=== PATIENT | female | born 1925 | race Caucasian/White ===

== ENCOUNTER 2016-08-28 09:25 | Inpatient (IN) | payer MEDICARE ==
--- NOTE | ~2016-08-28 | DS ---
Discharge Summary [id number] [place]. [address] NAME: HEIDE SOTO : [birth year] STATUS : DIS IN PAT#: [id number] AGE: 89 ADM/REG DATE : 08/28/16 MR#: [id number] REPORT SERV DATE: 09/01/16 DICTATED BY: DATE: REPORT STATUS : Draft TRANSCRIBED BY: MODL DATE: 08/31/16 ADMISSION DATE: 08/28/2016 DISCHARGE DATE: 08/31/2016 DISCHARGE DIAGNOSES: 1. Strep pharyngitis. 2. Recurrent UTIs. 3. Hypothyroidism. 4. Toxic encephalopathy. 5. Anemia. 6. History of lung nodule. 7. Possible pneumonia. CONSULTING PHYSICIANS: None. DISCHARGE MEDICATIONS: 1. Augmentin 875 mg p.o. b.i.d. x7 more days. 2. Aspirin 81 mg p.o. daily. 3. Cosopt ophthalmic solution 1 drop b.i.d. both eyes. 4. Doxycycline 100 mg p.o. b.i.d. x7 days. 5. Estradiol 0.01% q. 7 days. 6. Lumigan 0.01% ophthalmic drops, 1 drop in left eye at bedtime. 7. Synthroid 75 mcg p.o. daily Saturday through Saturday, Synthroid 112.5 mcg p.o. Sundays. 8. Cozaar 100 mg p.o. daily. 9. Melatonin 5 mg p.o. at bedtime. 10.Evista 60 mg p.o. daily. 11.Klonopin 0.5 mg p.o. at bedtime. 12.Advil 200 mg p.o. daily p.r.n. for pain. 13.Benefiber 1 dose p.o. every morning. 14.Pepcid 20 mg p.o. daily p.r.n. for indigestion. 15.Gas-X 80 mg p.o. daily p.r.n. for indigestion. 16.Multivitamin p.o. daily. 17.[place]-3 fatty acids 2000 mg p.o. daily. 18.Probiotic one tablet p.o. daily. For full H and P, please refer to Dr. Renee Graff' dictation on 08/28/2016. IMAGING: Includes a portable chest x-ray, which demonstrated stable aortic atherosclerosis and pulmonary venous congestion, but no acute infiltrate was noted. CT of the chest without contrast as well as a CT of the abdomen and pelvis with contrast was performed, and the CT of the chest with minimal tree in bud infiltrates and upper lobes of both lungs was noted likely infectious inflammatory, but it was very similar to her prior exam 1 month ago. She has a stable 2 x 5 mm noncalcified right upper lobe pulmonary nodule. A 4 mm noncalcified right middle lobe pulmonary nodule and a partially calcified 3 x 6 mm subpleural nodule in the left upper lobe. The patient will follow up the CT scan of the chest in 12 months for further evaluation as an outpatient. She also had trace bilateral pleural effusions. A CT of the abdomen showed colonic diverticulosis without evidence of acute diverticulitis, which Discharge Summary [address] [place]. [address] NAME: HEIDE SOTO : [birth year] STATUS : DIS IN PAT#: [id number] AGE: 89 ADM/REG DATE : 08/28/16 MR#: [id number] REPORT SERV DATE: 09/01/16 DICTATED BY: DATE: REPORT STATUS : Draft TRANSCRIBED BY: MODL DATE: 08/31/16 showed moderate to large amount of stool in the rectosigmoid region, moderate stool in the descending colon; however, no impaction was noted. She has stable compression fractures at T9 and L1, shows a small hiatal hernia. HOSPITAL COURSE/PROBLEM LIST: 1. Strep pharyngitis and possible pneumonia as noted above in the CT scan there was tree- in-bud infiltrates; however, this was present [address] scan, at that time, it is not clear if the patient actually had a small amount of pneumonia or not; however, were treating accordingly. The patient did have a positive strep throat as well, this is why we were treating this as well. She also had a positive MRSA nasal swab. So, I will discharge the patient on doxycycline and Augmentin p.o., for 7 more days and have her follow up with her primary care provider, if she does not improve, continue to improve or if she worsens. She is instructed to come back to the hospital. The patient also has a history of recurrent UTIs with MSSA, as well as E coli. The above-mentioned antibiotic should cover these bacteria. 2. Hypothyroidism, the patient's TSH was elevated at 5.3, however the free T4 was normal at 1.07. I will continue her current regimen and have her follow up with her primary care provider for further management of this. 3. Toxic encephalopathy. This is resolved since admission. Within 24 hours of admission. 4. History of anemia, the patient's H and H is stable at 10.8 and 33.2. She will follow up with her primary care provider for further monitoring of this. 5. Multiple lung nodules. This is known to the patient she has had these on her CT scans before and she will continue to follow up with CT scans in the future for further monitoring. MYLENE/MODL Glenn Heath NP / [id number] CC: MD Sherrie Jaquez M.D.
--- NOTE | ~2016-08-28 | HP ---
History And Physical [id number] [facility] [place]. [address] NAME: HEIDE SOTO : [birth year] STATUS : ADM IN [facility]#: [id number] AGE: 89 ADM/REG DATE : 08/28/16 MR#: [id number] REPORT SERV DATE: 08/28/16 DICTATED BY: TAMMIE GRAFF DATE: 08/28/16 REPORT STATUS : Draft TRANSCRIBED BY: MODL DATE: 08/28/16 DATE OF ADMISSION: 08/28/2016 CHIEF COMPLAINT: Fever. HISTORY OF PRESENT ILLNESS: The patient is a very pleasant 89-year-old white female, who is well known to the Hospitalist Service. She was actually last here on in June 2016. At that time, she was admitted with toxic encephalopathy secondary to pneumonia and sepsis secondary to pneumonia. There was concern of a right lower lobe mass, for which she had a followup CT in four weeks. This area has actually improved and it did look like she probably had a pneumonic process. Today, she comes in after having about 48 hours of fever and just not behaving as her usual self. She has been a bit confused, but this is not unusual when she has an infection of any sort. She has not had a headache or any neck pain. She denies abdominal pain, denies chest pain. Her daughter denies that she has had a new cough. She has not complained of any dysuria to her daughter. The only complaint she has had is nausea. Her daughter has not noticed any skin changes. She actually showered her yesterday and looked at all of her mother and did not really notice anything unusual. She went to Dr. Ackerman yesterday for a routine followup for a pessary change, had the pessary changed, had a UA dipstick done and at that time, was told she had a UTI and started on Macrobid. She has only taken two doses since yesterday. She has been exposed to Strep in some grandchildren she was recently exposed to and other than that, there was really no other real specific complaints that she can identify. PAST MEDICAL HISTORY: 1. Recurrent urinary tract infections with previous history of MSSA. 2. Hypothyroidism. 3. Hypertension. 4. Previous pneumonia. 5. Iron deficiency anemia. 6. Glaucoma. 7. Mixed connective tissue disorder. 8. Raynaud's. 9. Pulmonary nodules with negative bronch. 10.Mediastinal lymphadenopathy. 11.COPD. 12.GERD. 13.Urinary incontinence. 14.Pelvic floor weakness. SURGICAL HISTORY: 1. She has had a left retina repair. 2. I and D of the finger, sphenoid surgery, left parotid tumor resection, and a cystoscopy. ALLERGIES: CODEINE AND SULFA. History And Physical [address] [address] NAME: HEIDE SOTO : [birth year] STATUS : ADM IN [facility]#: [id number] AGE: 89 ADM/REG DATE : 08/28/16 MR#: [id number] REPORT SERV DATE: 08/28/16 DICTATED BY: TAMMIE GRAFF DATE: 08/28/16 REPORT STATUS : Draft TRANSCRIBED BY: AYLA DATE: 08/28/16 SOCIAL HISTORY: She smoked for about fifteen to eighteen years, quit many years ago. She does not drink alcohol. She lives with a daughter. FAMILY HISTORY: Positive for mother also had recurrent urinary tract infection. She had a father with heart disease and her brother had lung cancer and COPD. HOME MEDICATIONS: Reviewed and attached. REVIEW OF SYSTEMS: Full ten-point review of systems obtained. Pertinent positives already mentioned in the HPI. PHYSICAL EXAMINATION: VITAL SIGNS: BP 131/56, sats 95%. Temp 99.0. However, she has a difficult time cooperating with a temperature, pulse is 104, respiratory rate is 20. GENERAL: Well-developed, elderly white female, thin and frail HEENT: Normocephalic, atraumatic. Throat is clear. I did examine her posterior pharynx. It was not apparently red. Her face does have a flushed appearance and some redness, which is left greater than right, but it does not appear to be cellulitic. NECK: Supple. HEART: Regular rate and rhythm. LUNGS: Grossly clear, but diminished at the bases. ABDOMEN: Soft, nontender, nondistended. She has positive bowel sounds. EXTREMITIES: Warm and dry. I did roll her over, I examined her skin, and I did not appreciate any evidence of cellulitis. NEURO: She is alert. She is oriented to person and place, but not time and her speech is appropriate. Her mouth is dry, which makes speaking a bit difficult, but she has symmetrical strength and tone in all four extremities. LABORATORY AND X-RAY: CBC: White count is 29,000, H and H 11.5 and 35, and platelets are 258. Coags are normal. Basic metabolic panel is essentially normal. Albumin is 2.7. LFTs are normal. Troponin is negative at 0.02. Lactate is 1.5. Urinalysis shows only one whites. Chest x-ray is essentially negative. ASSESSMENT/PLAN: 1. Fever with leukocytosis to 29,000. The only symptom is nausea fairly [place] [id number] and normal urine and no evidence of pneumonia on chest x-ray, I think we need to look further. Given her advanced age, certainly she could have some occult infection that we have missed. She does not have headache or nuchal signs; I doubt that she has a meningitis. I would like however given that she has had some nausea and she had a previous pneumonia, to go and scan her chest, abdomen, and pelvis to make sure we are not missing an infection. We will culture her blood and urine. We will scan her chest, abdomen, and pelvis. We will check a procalcitonin. We will place her empirically on Zosyn and Vanc until we have a clear source. Also, we are going to do a rapid Strep screen and a flu swab on her since she does have a fever. 2. History of recurrent urinary tract infections. Her urinalysis looks fairly bland History And Physical [address] [address] NAME: HEIDE SOTO : [birth year] STATUS : ADM IN [facility]#: [id number] AGE: 89 ADM/REG DATE : 08/28/16 MR#: [id number] REPORT SERV DATE: 08/28/16 DICTATED BY: TAMMIE GRAFF DATE: 08/28/16 REPORT STATUS : Draft TRANSCRIBED BY: MODL DATE: 08/28/16 today. We will follow up her urine culture from Dr. Ackerman. I have requested those results. 3. History of hypothyroidism. 4. History of anemia, stable. 5. History of connective tissue disorder, stable. 6. History of recent pneumonia in June. Follow-up CT looks like it was improving. She is going to get another CT today. 7. Deep venous thrombosis prophylaxis with subcutaneous Lovenox. 8. Toxic encephalopathy likely secondary to ongoing infection. We will try to identify the source. 9. Disposition, pending above. LEFTY/MODL Tammie Graff M.D. / [id number] CC: MD Sherrie Wing M.D.
[~2016-08-28 09:25] MED LIST: ACET500CAP PO; ACTONEL35 MG PO; ADVIL PO; ASAB PO; AUG875 PO; CALTRA600D PO; CALTRAT600 PO; CEFT5 PO; CENTRUM PO; CENTRUM TAB1 TAB PO; COQ-1010 MG PO; COSOPT OPH; COZAAR100 MG PO; CYANO1000T PO; DORZOL/TIMOL1 ML OPH; ESTRACE VAGIN42.5 GM V; EVISTA60 PO; FISH OIL PO; FISH-EPA1000 MG PO; FOLIC ACID PO; GLUCCHONDR PO; GLUCOSAMINE SULFATE PO; HALF81 PO; KLONO5 PO; LUMIGAN2.5 ML OPH; MACROBID PO; MCZ25 PO; MELATONIN5 M1 PO; METAMUCIL CAN7 OZ PO; METANX PO; METPAKSF PO; MIRALAXPKT PO; MULTIVIT/MIN PO; MULTIVITAMI1 PO; MULTIVITAMIN CHEW PO; NEUR300 PO; OMNICEF300 PO; P1 PO; PEP10 PO; PRAV10 PO; PROBIOTIC PO; SENOKOTS PO; SEPTRA DS1 TAB PO; SYN075 PO; T PO; VIB50 PO; [UNRECOGNIZED DRUG - OTHER]; [UNRECOGNIZED DRUG - OTHER] PO
[2016-08-28 09:37] LABS: ASCORBIC ACID (UR NOT ORDER) NEG (NEG); BILIRUBIN, URINE NEGATIVE (NEG); ER URINALYSIS TAT 0 Hrs 00 Mins; KETONE, URINE NEGATIVE (NEG); LEUKOCYTE ESTERASE(NOT OR NEG (NEG); WBC (NOT ORDERED) (RFLEX) 1 (0-5)
[2016-08-28 09:38] LABS: NITRITE (URINE) POS (NEG)
[2016-08-28 09:53] LABS: BASOPHILS 0.1 %; BASOPHILS ABSOLUTE 0.02 10/3/uL (0.0-0.16); EOSINOPHILS 0 %; EOSINOPHILS ABSOLUTE 0.01 10/3/uL (0.0-0.53); HEMOGLOBIN 11.5 g/dL (12.0-16.0); IMMATURE GRANULOCYTES 0.5 %; LYMPHOCYTES ABSOLUTE 0.88 10/3/uL (0.67-4.30); MEAN CORPUS HGB CONC 32.9 g/dL (32.0-36.0); MEAN CORPUSCULAR HEMOGLOB 28.5 pg (26.0-34.0); MEAN CORPUSCULAR VOLUME 86.6 fL (80-100); MEAN PLATELET VOLUME 10.2 fL (9.2-13.0); MONOCYTES 3.3 %; MONOCYTES ABSOLUTE 0.97 10/3/uL (0.21-1.20); NEUTROPHILS 93.1 %; NEUTROPHILS ABSOLUTE 27.32 10/3/uL (2.02-8.40); PLATELET COUNT 258 10/3/uL (150-400); RBC DISTRIBUTION WIDTH 14.5 % (12.0-16.0); RED CELL COUNT 4.04 10/6/uL (4.0-5.6)
[2016-08-28 09:58] LABS: ER CBC TAT 0 Hrs 09 Mins; WHITE BLOOD CELLS 29.3 10/3/uL (4.5-10.5)
[2016-08-28 09:59] LABS: IMMATURE GRANULOCYTES ABSOLUTE 0.14 10/3/uL (0.0-0.11); MANUAL DIFF NO %
[2016-08-28 10:00] LABS: INTERNATIONAL NORMAL RATI 1.1 UNITS (-); PROTIME (NOT ORD) 13.6 SEC (12.0-14.5)
[2016-08-28 10:13] LABS: A/G RATIO 0.7 (0.7-1.9); ALKALINE PHOSPHATASE 73 U/L (45-117); BUN (BLOOD UREA NITROGEN) 15 MG/DL (6-23); CALCIUM, SERUM 7.4 MG/DL (8.5-10.4); CHLORIDE, SERUM 104 MMOL/L (96-112); CO2 (CARBON DIOXIDE) 23 MMOL/L (24-34); CREATININE 0.79 MG/DL (0.55-1.02); GFR AFRICAN AMERICAN 77 ML/MIN (>=60); GFR NON AFRICAN AMERICAN 66 ML/MIN (>=60); GLOBULIN 3.8 G/DL (2.5-4.1); GLUCOSE, SERUM 81 MG/DL (60-99); POTASSIUM, SERUM 3.8 MMOL/L (3.5-5.3); SGOT(AST) 21 U/L (5-40); SGPT(ALT) 22 U/L (5-65); SODIUM, SERUM 137 MMOL/L (135-148); TOTAL BILIRUBIN 0.7 MG/DL (0-1.2); TOTAL PROTEIN 6.5 G/DL (6.0-8.5); TROPONIN I <0.02 NG/ML (<0.05)
[2016-08-28 10:14] LABS: ALBUMIN 2.7 G/DL (3.5-5.0)
[2016-08-28 10:15] LABS: ER DIFF TAT 0 Hrs 26 Mins; LYMPHOCYTES 3 %; LYMPHOCYTES ABSOLUTE (CALC) 0.88 10/3/uL (0.67-4.30); MONOCYTES 3 %; MONOCYTES ABSOLUTE (CALC) 0.88 10/3/uL (0.21-1.20); NEUTROPHILS ABSOLUTE (CALC) 27.54 10/3/uL (2.02-8.40); SEGMENTED NEUTROPHIL (0) 94 %; TOTAL NUCLEATED CELLS 100
[2016-08-28 10:16] LABS: PLATELET ESTIMATE ADQ (ADEQUATE); RBC MORPHOLOGY NORM (NORMAL)
[2016-08-28] MEDS ORDERED: ASAB PO (10:29)
[2016-08-28] MEDS ORDERED: COSOPT OPH (10:30)
[2016-08-28] MEDS ORDERED: EVISTA60 PO (10:30)
[2016-08-28] MEDS ORDERED: COZAAR100 MG PO (10:31)
[2016-08-28] MEDS ORDERED: LUMIGAN2.5 ML OPH (10:31)
[2016-08-28] MEDS ORDERED: MELATONIN5 M1 PO (10:31)
[2016-08-28] MEDS ORDERED: KLONO5 PO (10:32)
[2016-08-28] MEDS ORDERED: BENEFIBER OTC PO (10:32)
[2016-08-28] MEDS ORDERED: ESTRACE VAGIN42.5 GM V (10:32)
[2016-08-28] MEDS ORDERED: MACROBID PO ×2 (10:32→10:39)
[2016-08-28] MEDS ORDERED: ADVIL PO (10:34)
[2016-08-28] MEDS ORDERED: GAS-X80 MG PO (10:35)
[2016-08-28] MEDS ORDERED: PEP20 PO (10:35)
[2016-08-28] MEDS ORDERED: M VIT PO (10:39)
[2016-08-28] MEDS ORDERED: PROBIOTIC PO (10:40)
[2016-08-28] MEDS ORDERED: OMEGA PO (10:40)
[2016-08-28 15:03] LABS: FERRITIN 86 NG/ML (8-252); IRON BINDING CAPACITY 234 MCG/DL (225-410); IRON, SERUM 12 MCG/DL (35-150)
[2016-08-28 15:52] LABS: PROCALCITONIN 0.49 ng/mL (<0.5)
[2016-08-28 19:56] LABS: INFLUENZA A SCREEN NEGATIVE (NEGATIVE); INFLUENZA B SCREEN NEGATIVE (NEGATIVE)
[2016-08-29 05:55] LABS: HEMOGLOBIN 9.8 g/dL (12.0-16.0); MEAN CORPUS HGB CONC 33.6 g/dL (32.0-36.0); MEAN CORPUSCULAR HEMOGLOB 29.6 pg (26.0-34.0); MEAN CORPUSCULAR VOLUME 88.2 fL (80-100); PLATELET COUNT 196 10/3/uL (150-400); RBC DISTRIBUTION WIDTH 14.9 % (12.0-16.0); RED CELL COUNT 3.31 10/6/uL (4.0-5.6)
[2016-08-29 05:57] LABS: HEMATOCRIT 29.2 % (36.0-48.0); MANUAL DIFF YES %; WHITE BLOOD CELLS 14.1 10/3/uL (4.5-10.5)
[2016-08-29 06:00] LABS: BUN (BLOOD UREA NITROGEN) 13 MG/DL (6-23); CALCIUM, SERUM 7.2 MG/DL (8.5-10.4); CHLORIDE, SERUM 110 MMOL/L (96-112); CO2 (CARBON DIOXIDE) 20 MMOL/L (24-34); CREATININE 0.85 MG/DL (0.55-1.02); GFR AFRICAN AMERICAN 70 ML/MIN (>=60); GFR NON AFRICAN AMERICAN 61 ML/MIN (>=60); GLUCOSE, SERUM 71 MG/DL (60-99); POTASSIUM, SERUM 3.6 MMOL/L (3.5-5.3); SODIUM, SERUM 140 MMOL/L (135-148)
[2016-08-29 06:21] LABS: BAND NEUTROPHILS 2 %; LYMPHOCYTES 6 %; LYMPHOCYTES ABSOLUTE (CALC) 0.85 10/3/uL (0.67-4.30); MONOCYTES 3 %; MONOCYTES ABSOLUTE (CALC) 0.42 10/3/uL (0.21-1.20); NEUTROPHILS ABSOLUTE (CALC) 12.83 10/3/uL (2.02-8.40); SEGMENTED NEUTROPHIL (0) 89 %; TOTAL NUCLEATED CELLS 100
[2016-08-29 06:22] LABS: OVALOCYTES 1+ (3-10/OIF) (0-2/OIF); POIKILOCYTOSIS 1+ (5-10/OIF) (0-5/OIF)
[2016-08-30 05:01] LABS: BASOPHILS 0.2 %; BASOPHILS ABSOLUTE 0.01 10/3/uL (0.0-0.16); EOSINOPHILS 5.9 %; EOSINOPHILS ABSOLUTE 0.36 10/3/uL (0.0-0.53); HEMOGLOBIN 9.8 g/dL (12.0-16.0); IMMATURE GRANULOCYTES 0.2 %; IMMATURE GRANULOCYTES ABSOLUTE 0.01 10/3/uL (0.0-0.11); LYMPHOCYTES 21.4 %; LYMPHOCYTES ABSOLUTE 1.31 10/3/uL (0.67-4.30); MEAN CORPUS HGB CONC 32.7 g/dL (32.0-36.0); MEAN CORPUSCULAR HEMOGLOB 29.2 pg (26.0-34.0); MEAN CORPUSCULAR VOLUME 89.3 fL (80-100); MEAN PLATELET VOLUME 10.3 fL (9.2-13.0); MONOCYTES 8.6 %; MONOCYTES ABSOLUTE 0.53 10/3/uL (0.21-1.20); NEUTROPHILS 63.7 %; NEUTROPHILS ABSOLUTE 3.91 10/3/uL (2.02-8.40); PLATELET COUNT 216 10/3/uL (150-400); RBC DISTRIBUTION WIDTH 15.2 % (12.0-16.0); RED CELL COUNT 3.36 10/6/uL (4.0-5.6)
[2016-08-30 05:03] LABS: MANUAL DIFF NO %; WHITE BLOOD CELLS 6.1 10/3/uL (4.5-10.5)
[2016-08-30 05:19] LABS: BUN (BLOOD UREA NITROGEN) 13 MG/DL (6-23); CALCIUM, SERUM 7.4 MG/DL (8.5-10.4); CHLORIDE, SERUM 108 MMOL/L (96-112); CO2 (CARBON DIOXIDE) 22 MMOL/L (24-34); CREATININE 0.94 MG/DL (0.55-1.02); FREE T4 1.07 NG/DL (0.76-1.46); GFR AFRICAN AMERICAN 62 ML/MIN (>=60); GFR NON AFRICAN AMERICAN 54 ML/MIN (>=60); POTASSIUM, SERUM 3.8 MMOL/L (3.5-5.3); SODIUM, SERUM 139 MMOL/L (135-148)
[2016-08-30 05:20] LABS: GLUCOSE, SERUM 102 MG/DL (60-99)
[2016-08-31 06:34] LABS: BASOPHILS 0.2 %; BASOPHILS ABSOLUTE 0.01 10/3/uL (0.0-0.16); EOSINOPHILS ABSOLUTE 0.43 10/3/uL (0.0-0.53); HEMOGLOBIN 10.8 g/dL (12.0-16.0); IMMATURE GRANULOCYTES 0.2 %; IMMATURE GRANULOCYTES ABSOLUTE 0.01 10/3/uL (0.0-0.11); LYMPHOCYTES 32.4 %; LYMPHOCYTES ABSOLUTE 1.75 10/3/uL (0.67-4.30); MEAN CORPUS HGB CONC 32.5 g/dL (32.0-36.0); MEAN CORPUSCULAR HEMOGLOB 28.9 pg (26.0-34.0); MEAN CORPUSCULAR VOLUME 88.8 fL (80-100); MEAN PLATELET VOLUME 10.3 fL (9.2-13.0); MONOCYTES 11.5 %; MONOCYTES ABSOLUTE 0.62 10/3/uL (0.21-1.20); NEUTROPHILS 47.7 %; NEUTROPHILS ABSOLUTE 2.58 10/3/uL (2.02-8.40); PLATELET COUNT 232 10/3/uL (150-400); RED CELL COUNT 3.74 10/6/uL (4.0-5.6); WHITE BLOOD CELLS 5.4 10/3/uL (4.5-10.5)
[2016-08-31 06:43] LABS: HEMATOCRIT 33.2 % (36.0-48.0); MANUAL DIFF NO %
[2016-08-31 06:57] LABS: CHLORIDE, SERUM 106 MMOL/L (96-112); CO2 (CARBON DIOXIDE) 25 MMOL/L (24-34); CREATININE 0.74 MG/DL (0.55-1.02); GFR AFRICAN AMERICAN 83 ML/MIN (>=60); GFR NON AFRICAN AMERICAN 72 ML/MIN (>=60); GLUCOSE, SERUM 82 MG/DL (60-99); POTASSIUM, SERUM 3.8 MMOL/L (3.5-5.3); SODIUM, SERUM 139 MMOL/L (135-148)
[2016-08-31 07:01] LABS: BUN (BLOOD UREA NITROGEN) 9 MG/DL (6-23)
[2016-08-31] MEDS ORDERED: AUG875 PO (09:35)
[2016-08-31] MEDS ORDERED: VIBRATAB100 MG PO (09:36)
[2016-12-13] MEDS ORDERED: COZAAR100 MG PO (19:29)
[2016-12-13] MEDS ORDERED: COSOPT OPH (19:29)
[2016-12-13] MEDS ORDERED: GLUCOSAMINEPO PO (19:29)
[2016-12-13] MEDS ORDERED: LUMIGAN2.5 ML OPH (19:29)
[2016-12-13] MEDS ORDERED: ASAB PO (19:30)
[2016-12-13] MEDS ORDERED: ACET500CAP PO (19:30)
[2016-12-13] MEDS ORDERED: PROMEGA PO (19:31)
[2016-12-13] MEDS ORDERED: MULTIVIT/MIN PO (19:31)
[2016-12-13] MEDS ORDERED: METPAKSF PO (19:31)
[2016-12-13] MEDS ORDERED: MELATONIN5 M1 PO (19:31)
[2016-12-13] MEDS ORDERED: KLONO5 PO (19:32)
[2016-12-13] MEDS ORDERED: PROBIOTIC OTC PO (19:32)
[2016-12-13] MEDS ORDERED: SYN075 PO (19:32)
[2016-12-13] MEDS ORDERED: EVISTA60 PO (19:32)
[2016-12-20] MEDS ORDERED: FLORASTOR250 MG PO (15:48)
[2016-12-20] MEDS ORDERED: VANCOCIN HCL125 MG PO (15:49)
== END 2016-08-31 13:14 | disposition home or self-care (01) | DRG 871 ==
LOC: ER 09:25 → 4SO 11:40
PROVIDERS: Emergency Medicine; Internal Medicine; Nurse Practitioner Acute Care; Surgery
DX: A40.8 Other streptococcal sepsis (principal); J15.4 Pneumonia due to other streptococci; G92 Toxic encephalopathy; N39.0 Urinary tract infection, site not specified; J02.0 Streptococcal pharyngitis; B95.62 Methicillin resistant Staphylococcus aureus infection as the cause of diseases classified elsewhere; E03.9 Hypothyroidism, unspecified; D64.9 Anemia, unspecified; R91.8 Other nonspecific abnormal finding of lung field; I10 Essential (primary) hypertension; D50.9 Iron deficiency anemia, unspecified; H40.9 Unspecified glaucoma; I73.00 Raynaud's syndrome without gangrene; R59.1 Generalized enlarged lymph nodes; K21.9 Gastro-esophageal reflux disease without esophagitis; J44.9 Chronic obstructive pulmonary disease, unspecified; Z88.2 Allergy status to sulfonamides; Z88.5 Allergy status to narcotic agent; Z87.891 Personal history of nicotine dependence
CPT/HCPCS: 71010; 71250; 74176; 80048; 80053; 81001; 82150; 82728; 83540; 83550; 83605; 83690; 84145; 84439; 84443; 84484; 85025; 85610; 87040; 87641; 87804; 87880; 96374; 99285; A9270-GY; J2405; J2543; J3370